=== PATIENT | male | born 1990 | race Native Hawaiian/Other Pacific Islander ===

== ENCOUNTER 2017-05-16 02:02 | Emergency (ER) | payer OTHER ==
[~2017-05-16] VITALS: Ht 182.9 cm; Wt 77.1 kg
[2017-05-16 03:16] VITALS: BP 119/55; TEMP 98.7
== END 2017-05-16 03:19 | disposition home or self-care (01) ==
LOC: ED 02:02
DX: S93.402A Sprain of unspecified ligament of left ankle, initial encounter (principal); X50.1XXA Overexertion from prolonged static or awkward postures, initial encounter; Y92.098 Other place in other non-institutional residence as the place of occurrence of the external cause
CPT/HCPCS: 99283

== ENCOUNTER 2023-04-19 21:07 | Emergency (ER) | payer OTHER ==
[~2023-04-19] VITALS: Ht 182.9 cm; Wt 63.5 kg
[2023-04-19 22:52] VITALS: BP 137/80; TEMP 98.2
== END 2023-04-19 22:52 | disposition home or self-care (01) ==
LOC: ED 21:07
DX: B35.3 Tinea pedis (principal); S90.822A Blister (nonthermal), left foot, initial encounter; S90.821A Blister (nonthermal), right foot, initial encounter; F17.210 Nicotine dependence, cigarettes, uncomplicated
CPT/HCPCS: 99282